=== PATIENT | female | born 1965 | race Caucasian/White ===

== ENCOUNTER 2018-06-08 14:01 | Observation (INO) ==
--- NOTE | 2018-06-08 14:44 | Emergency Department Note ---
Disposition Clinical Impression: Chest pain Qualifiers: Chest pain type: unspecified Qualified Code(s): R07.9 - Chest pain, unspecified Disposition: Admitted As Inpatient Condition: Fair Time of Disposition: 17:38 General Adult HPI - General Chief complaint: ED Shortness of Breath/Dyspnea Stated complaint: KRYSTYNA,Possible pneumonia Time Seen by Provider: 06/08/18 14:17 Source: patient, family Mode of arrival: ambulatory Limitations: no limitations Nursing Notes Reviewed: Yes Vital Signs Reviewed: Yes - History of Present Illness HPI Narrative: 52-year-old female with significant past medical history of COPD not requiring oxygen presenting to the emergency department with chief complaint of acute onset substernal chest pain. Patient states that approximately 11:00 this afternoon she was sitting down when she had crushing substernal chest pain in her left chest. Denies any radiation. Does disclose nausea and mild diaphoresis but denies any vomiting. She states when she started having the pain she took a few full dose aspirin at home. She became concerned when her pain did not resolve and came to the emergency department for further evaluation. She denies any significant cardiac disease but does disclose hypercholesterolemia, hypertension and significant family cardiac disease. She states one year ago her younger sister from an [place]. Patient denies any other anticoagulation use. Pain Scale: 8 - Related Data Home Medications Medication Instructions Recorded Confirmed Albuterol Sulfate [Proair 2 puff IN Q4H PRN 06/12/15 06/08/18 Respiclick] Omeprazole [PriLOSEC] 20 mg PO DAILY 06/12/15 06/08/18 Oxycodone HCl/Acetaminophen 1 each PO Q6H PRN 06/12/15 06/08/18 [Percocet 5-325 mg Tablet] Tiotropium [Spiriva] 18 mcg IH DAILY 06/12/15 06/08/18 Gabapentin [Neurontin] 800 mg PO TID 12/08/16 06/08/18 Levothyroxine Sodium [Levoxyl] 88 mcg PO DAILY 12/08/16 06/08/18 Lisinopril [Zestril] 20 mg PO DAILY 12/08/16 06/08/18 Rosuvastatin [Crestor] 20 mg PO HS 12/08/16 06/08/18 Spironolactone [Aldactone] 25 mg PO DAILY 12/08/16 06/08/18 Previous Rx's Medication Instructions Recorded Ondansetron ODT [Zofran ODT] 4 mg SL Q6HR PRN #10 tab.rapdis 12/20/17 Sucralfate [Carafate] 1 gm PO QIDAC #120 tablet 12/20/17 Allergies Allergy/AdvReac Type Severity Reaction Status Date / Time Penicillins Allergy Difficulty Verified 04/03/18 13:57 Breathing All systems ED: reviewed and negative except as stated. Constitutional: Denies: fever Eyes: Reports: as per HPI ENT ED: Reports: as per HPI Cardiovascular: Reports: chest pain Respiratory: Denies: dyspnea Gastrointestinal: Reports: nausea. Denies: abdominal pain Genitourinary: Reports: as per HPI Musculoskeletal: Reports: as per HPI Integumentary: Reports: as per HPI Neurological: Reports: as per HPI Psychiatric: Reports: as per HPI Endocrine: Reports: as per HPI Hematological/Lymphatic: Reports: as per HPI Allergic/Immunologic: Reports: as per HPI Past Medical History - Past Medical History Attestation: Yes The following information was validated with the patient. 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 Absent: tenderness - Respiratory Respiratory exam: Present: normal lung sounds bilaterally. Absent: respiratory distress, wheezes - Cardiovascular Cardiovascular exam: Present: regular rate, normal rhythm, normal heart sounds - Abdominal Exam Abdominal exam: Present: soft, Non-Tender. Absent: distention, guarding, rebound - Extremities Exam Extremities exam: Present: full ROM - Neurological Exam Neurological exam: Present: alert, oriented X3 - Psychiatric Psychiatric exam: Present: anxious - Skin Skin exam: Present: warm Course Course Narrative: 52-year-old female presenting for chest pain that started at 11:00. Patient still having active chest pain in the room. She is alert and oriented 3 and hemodynamically stable. Patient has no cardiac disease with significant family history. At this time we will perform a chest pain workup including CBC, BMP, troponin, EKG and chest x-ray. We will provide the patient with a nitroglycerin trial. Patient already took full dose aspirin at home. Disposition most likely admission but the pending results. Patient agrees with this plan. - Reevaluation(s) Reevaluation #1: Patient's laboratory analysis within normal limits. EKG within normal limits. Patient pain decreased from 10-7 with 3 nitroglycerin. We will provide the patient with morphine at this time. We will plan to admit the patient for further chest pain rule out. Patient is alert and oriented 3 and hemodynamically stable. Patient agrees with this plan. I spoke with the hospitalist on-call who agrees to accept the patient at this time. Vital Signs Temperature 97.5 F L 06/08/18 14:03 Pulse Rate 92 06/08/18 14:03 Respiratory Rate 20 06/08/18 14:03 Blood Pressure 131/90 06/08/18 14:03 O2 Sat by Pulse Oximetry 100 06/08/18 14:03 Temperature 97.5 F L 06/08/18 14:03 Pulse Rate 72 06/08/18 16:11 Respiratory Rate 17 06/08/18 16:11 Blood Pressure 103/76 06/08/18 16:11 O2 Sat by Pulse Oximetry 99 06/08/18 16:11 Oxygen Delivery Oxygen Delivery Room Air Medical Decision Making - Lab Data Result diagrams: 06/08/18 14:36 06/08/18 14:36 Lab Results 06/08/18 06/08/18 06/08/18 Range/Units 14:36 14:36 14:36 WBC 11.5 H (4.3-11.1) K/mcL RBC 4.37 (3.82-4.97) M/mcL Hgb 14.0 (11.5-15.4) g/dL Hct 41.5 (35.3-44.9) % MCV 95.0 (83.0-100.0) fL MCH 32.0 (28.0-33.3) pg MCHC 33.7 (31.6-35.5) g/dL RDW 12.3 (11.5-14.5) % Plt Count 296 (140-400) K/mcL MPV 10.2 (9.4-12.4) fL Immature Gran % 0.3 (0-4) % Seg Neutrophils % 64.5 % Lymphocytes % 26.0 % Monocytes % 7.0 % Eosinophils % 1.7 % Basophils % 0.5 % Neutrophils # 7.4 (1.6-8.9) K/mcL Lymphocytes # 3.0 (0.6-4.6) K/mcL Monocytes # 0.8 (0.0-1.3) K/mcL Eosinophils # 0.2 (0.0-0.6) K/mcL Basophils # 0.1 (0.0-0.2) K/mcL D-Dimer (0-500) ng/mLFEU Sodium 135 L (136-145) mEq/L Potassium 3.7 (3.5-5.1) mEq/L Chloride 101 (98-107) mEq/L Carbon Dioxide 24 (23-29) mEq/L BUN 11 (6-20) mg/dL Creatinine 0.98 (0.60-1.20) mg/dL Est GFR ( Amer) > 60 (> 60) Est GFR (Non-Af Amer) 59 L (> 60) BUN/Creatinine Ratio 11 (6-26) Glucose 92 (70-105) mg/dL Calculated Osmolality 279 L (280-300) Calcium 10.5 H (8.6-10.3) mg/dL Troponin I < 0.03 (< 0.04) ng/mL B-Natriuretic Peptide 34 (Less than 100) pg/mL 06/08/18 Range/Units 14:36 WBC (4.3-11.1) K/mcL RBC (3.82-4.97) M/mcL Hgb (11.5-15.4) g/dL Hct (35.3-44.9) % MCV (83.0-100.0) fL MCH (28.0-33.3) pg MCHC (31.6-35.5) g/dL RDW (11.5-14.5) % Plt Count (140-400) K/mcL MPV (9.4-12.4) fL Immature Gran % (0-4) % Seg Neutrophils % % Lymphocytes % % Monocytes % % Eosinophils % % Basophils % % Neutrophils # (1.6-8.9) K/mcL Lymphocytes # (0.6-4.6) K/mcL Monocytes # (0.0-1.3) K/mcL Eosinophils # (0.0-0.6) K/mcL Basophils # (0.0-0.2) K/mcL D-Dimer 334 (0-500) ng/mLFEU Sodium (136-145) mEq/L Potassium (3.5-5.1) mEq/L Chloride (98-107) mEq/L Carbon Dioxide (23-29) mEq/L BUN (6-20) mg/dL Creatinine (0.60-1.20) mg/dL Est GFR ( Amer) (> 60) Est GFR (Non-Af Amer) (> 60) BUN/Creatinine Ratio (6-26) Glucose (70-105) mg/dL Calculated Osmolality (280-300) Calcium (8.6-10.3) mg/dL Troponin I (< 0.04) ng/mL B-Natriuretic Peptide (Less than 100) pg/mL - EKG Data EKG #1 EKG attestation: Yes I reviewed and interpreted this EKG. EKG results narrative: Sinus rhythm. 77 bpm. WV interval 123, QRS 83, QTC 457. No sign of acute ST segment elevation or ischemia. Compared to previous EKG completed on 06/24/2016 no significant changes noted Attestation Statement - Attestation Attestation: I, Rocael Obrien, examined this patient and my medical decision-making was reviewed with the SALES OFFICE COORDINATOR/PA/Advanced Practice Nurse/Resident Physician. I agree with the documented findings, disposition and treatment plan as described except to the extent set forth below. 52-year-old female presents emergency Department with concerns of acute onset chest pain. Patient states around 11:00 she developed acute onset of left-sided chest pain which is described as a pressure. Patient reported associated lightheadedness. She states the pain is worse with deep breaths. Unable to reproduce pain on palpation. Initial troponin was negative. EKG did not show evidence of acute STEMI. Patient does have multiple cardiac risk factors however with hypertension, hyperlipidemia, family history of heart disease. D- dimer was negative. Patient be admitted to the hospital for further care and evaluation.
[2018-06-08 15:02] LABS: Basophils # 0.1 K/mcL (0.0-0.2); Basophils % 0.5 %; Eosinophils # 0.2 K/mcL (0.0-0.6); Eosinophils % 1.7 %; Hematocrit 41.5 % (35.3-44.9); Immature Granulocytes % 0.3 % (0-4); Mean Corpuscular HGB Conc 33.7 g/dL (31.6-35.5); Mean Platelet Volume 10.2 fL (9.4-12.4); Monocytes # 0.8 K/mcL (0.0-1.3); Neutrophils # 7.4 K/mcL (1.6-8.9); Platelet Count 296 K/mcL (140-400); Red Blood Count 4.37 M/mcL (3.82-4.97); Red Cell Distribution Width 12.3 % (11.5-14.5); Segmented Neutrophils % 64.5 %
[2018-06-08] MEDS: Nitroglycerin 0.4 MG TAB.SUBL SL PRN ×4 (15:03→23:54)
[2018-06-08 15:22] LABS: BUN/Creatinine Ratio 11 (6-26); Blood Urea Nitrogen 11 mg/dL (6-20); Calcium 10.5 mg/dL (8.6-10.3); Carbon Dioxide 24 mEq/L (23-29); Chloride 101 mEq/L (98-107); Glucose 92 mg/dL (70-105); Osmolality,Calculated 279 (280-300); Potassium 3.7 mEq/L (3.5-5.1); Sodium 135 mEq/L (136-145); Troponin I < 0.03 ng/mL (< 0.04); eGFR For Non-African Americans 59 (> 60)
[2018-06-08] MEDS ORDERED: *HR* Morphine 2 MG/ML SYRINGE IVP ONE (15:47)
[2018-06-08] MEDS ORDERED: Acetaminophen 325 MG TABLET PO ONE (16:49)
[2018-06-08] MEDS ORDERED: Naloxone 0.4 MG/ML INJ IVP PRN (18:26)
[2018-06-08] MEDS ORDERED: Albuterol 2.5 MG/3 ML NEBULIZER IH PRN (18:30)
[2018-06-08] MEDS: *HR* OxyCODONE/APAP 5/325 TABLET PO PRN (19:39)
[2018-06-08] MEDS: Gabapentin 400 MG CAPSULE PO SCH (19:39)
[2018-06-08] MEDS ORDERED: *HR* Promethazine 25 MG/ML VIAL IVP PRN (20:28)
--- NOTE | 2018-06-08 21:40 | Internal Med History&Physical ---
Date of Encounter: 06/08/18 Time of Encounter: 19:00 Internal Medicine - H&P: HPI Chief complaint: CHEST PAIN Admitted From: Home Plans for Post Hospital Care: Home History of present illness: The patient is a 52-year-old woman. She has had underlying COPD and fibromyalgia. She came to the emergency room around 2 PM complaining of precordial chest painCVA in intensity. The pain started around 11 AM; at resting. It did not radiate anywhere. Was associated with mild dyspnea but not diaphoresis or nausea/vomiting. The pain is worse with deep breathing. She has not noticed any exertional chest pain recently. The patient has had more anxiety recently; trying to quit smoking reducing daily number of cigarettes smoked gradually. She started to eat a few weeks ago. She went from one pack a day to about 10 cigarettes per day. Her COPD seems to be stable. She has not experienced any more coughing or wheezing recently. Her fibromyalgia seems to be bothering her last recently. PAST MEDICAL HX: She is treated for COPD, fibromyalgia, hypertension, hyperlipidemia, hypothyroidism and GERD. She has had chronic pain in her left leg due to multiple surgeries on her left knee. She has been taking Percocet for yearsto control the pain. PAST FAMILY HX: Her mother developed a myocardial infarction and her low 40s. See below for other family history. PAST SOCIAL HX: She started smoking cigarettes as a teenager. She used to smoke 1 pack per day; reduced to 10 cigarettes per day in the last 1 month. She denies alcohol and illicit drug use. REVIEW OF SYSTEMS: All 14 organ systems were reviewed by me with the patient. Positive and pertinent negative findings are listed above. The rest of organ systems is negative. PHYSICAL EXAM: Skin: Free of rash and discoloration. Musculoskeletal: There is tenderness at palpation of precordial area. Eyes: Sclera is white. There is no discharge from eyes. ENMT: Oral/pharyngeal mucosa is normal in appearance. There is no discharge from nose or ears. Respiratory: Normal breath sounds with no crackles and wheezes bilaterally. CV: Heart is regular with no gallop or murmur. GI: Abdomen is flat and soft with no palpable mass or visceromegaly. : There is no tenderness in patient's flanks bilaterally. Neuro exam: He has good strength in upper and lower extremities. He has normal eye movements. Psychiatric: He has normal affect. His thought process is appropriate to the situation. ADDITIONAL DATA: EKG shows normal sinus rhythm with no abnormalities. Troponin is normal. CBC shows hemoglobin of 14.0 with WBC of 11.5 thousand and normal platelet count. She has normal electrolytes. Creatinine 0.98. A/P: Chest pain. She has multiple risk factors for early form of coronary artery disease. This is why, I would request pharmacological stress test tomorrow morning. Fibromyalgia. This is probably, why she developed the chest pain. She has also quite a bit of anxiety. Chronic pain in left leg. To continue when necessary Percocet. Her other problems are stable/under control. To continue previously used medications. Past Med Surg Social Fam HX - Past Medical History Medical history: COPD, fibromyalgia, hyperlipidemia, hypertension, osteoporosis, thyroid disease, other Additional medical history: no h & P on chart, states liver disease, anemia, Psychiatric history: anxiety - Past Surgical History Surgical History: cholecystectomy, hysterectomy, knee replacement, orthopedic, other, other Additional surgical history: estephania shoulder scope, left foot, neck sg, bilat knees - Social History Smoking Status: Current every day smoker Smokeless Tobacco Status: No Alcohol use: none Drug use: none - Family History Mother Living Status: Hx Family Cardiac Disorders: Yes ([place]) Hx Family Endocrine Disorder: Yes (DM) Sister Living Status: Hx Family Cardiac Disorders: Yes ([place], factor V leiden) Hx Family Endocrine Disorder: Yes (DM) Father Living Status: Still Living Hx Family Cardiac Disorders: Yes Hx Family Respiratory Disorders: Yes Hx Family Cancer: Yes Hx Family Endocrine Disorder: Yes Internal Medicine - H&P: Meds Albuterol Sulfate [Proair Respiclick] 2 puff IN Q4H PRN 06/12/15 [History] Omeprazole [PriLOSEC] 20 mg PO DAILY 06/12/15 [History] Oxycodone HCl/Acetaminophen [Percocet 5-325 mg Tablet] 1 each PO Q6H PRN 06/12/15 [History] Tiotropium [Spiriva] 18 mcg IH DAILY 06/12/15 [History] Gabapentin [Neurontin] 800 mg PO TID 12/08/16 [History] Levothyroxine Sodium [Levoxyl] 88 mcg PO DAILY 12/08/16 [History] Lisinopril [Zestril] 20 mg PO DAILY 12/08/16 [History] Rosuvastatin [Crestor] 20 mg PO HS 12/08/16 [History] Spironolactone [Aldactone] 25 mg PO DAILY 12/08/16 [History] Ondansetron ODT [Zofran ODT] 4 mg SL Q6HR PRN #10 tab.rapdis 12/20/17 [Rx] Sucralfate [Carafate] 1 gm PO QIDAC #120 tablet 12/20/17 [Rx] Allergy/AdvReac Type Severity Reaction Status Date / Time Penicillins Allergy Difficulty Verified 04/03/18 13:57 Breathing - Constitutional Vitals: Temp Pulse Resp BP Pulse Ox 98.4 F 76 16 112/69 99 06/08/18 19:22 06/08/18 19:22 06/08/18 19:22 06/08/18 19:22 06/08/18 19:22 General appearance: Present: A&O X 3, no acute distress, answers questions appropriately Exam: XX Internal Med - H&P Results - Labs CBC & Chem 7: 06/08/18 14:36 06/08/18 14:36 Labs: Short CBC 06/08/18 Range/Units 14:36 WBC 11.5 H (4.3-11.1) K/mcL Hgb 14.0 (11.5-15.4) g/dL Hct 41.5 (35.3-44.9) % Plt Count 296 (140-400) K/mcL Neutrophils # 7.4 (1.6-8.9) K/mcL BMP 06/08/18 14:36 Sodium 135 L Potassium 3.7 Chloride 101 Carbon Dioxide 24 BUN 11 Creatinine 0.98 Glucose 92 Calcium 10.5 H Cardiac Enzymes 06/08/18 Range/Units 14:36 Troponin I < 0.03 (< 0.04) ng/mL - Impressions ITS Impressions Chest X-Ray 06/08/18 14:18 IMPRESSION: No acute abnormality. D/ / 06/08/2018 15:08:31 Finn Ramirez MD / Annie Romero Interpreting Provider: Finn Ramirez MD - Assessment and plan (1) Chest pain Current Visit: Yes Status: Acute Qualifiers: Chest pain type: precordial pain Qualified Code(s): R07.2 - Precordial pain (2) Fibromyalgia Current Visit: Yes Status: Chronic (3) Anxiety Current Visit: Yes Status: Chronic (4) Left leg pain Current Visit: Yes Status: Chronic - Time Spent With Patient Total time spent is greater than 50% in coordination of care (as documented) at patient's floor/unit and/or counseling patient: 25 - 35 minutes - VTE Reasons for not Prescribing Prophylaxis: Treatment not Indicated - Low risk for VTE Deep Vein Thrombosis/Pulmonary Embolism Present on Admission: No
[2018-06-09] MEDS: *HR* OxyCODONE/APAP 5/325 TABLET PO PRN ×2 (02:43→09:07)
[2018-06-09] MEDS ORDERED: Regadenoson 0.4 MG/5 ML SYRINGE IVP ONE (06:10)
[2018-06-09] MEDS ORDERED: Spironolactone 25 MG TABLET PO SCH (09:00)
[2018-06-09] MEDS ORDERED: Lisinopril 20 MG TABLET PO SCH (09:00)
[2018-06-09] MEDS ORDERED: Tiotropium 18 MCG inhalation IH SCH (09:00)
[2018-06-09] MEDS ORDERED: Aspirin 81 MG TAB.CHEW PO SCH (09:00)
[2018-06-09] MEDS: Gabapentin 400 MG CAPSULE PO SCH (09:08)
[2018-06-09 11:06] VITALS: BP 115/80
--- NOTE | 2018-06-09 12:05 | Discharge Summary ---
<LanceLuis E - Last Filed: 06/09/18 12:03> Orders not resulted at time of discharge: Pending orders 06/08/18 21:48 NM emi perf SPECT multi [NM] Routine 06/09/18 03:30 Factor V Leiden Routine Date of Encounter: 06/09/18 Time of Encounter: 09:20 - Discharge Diagnosis (1) Chest pain Priority: Primary Status: Acute Qualifiers: Chest pain type: precordial pain Qualified Code(s): R07.2 - Precordial pain (2) Anxiety Priority: Secondary Status: Chronic (3) Tobacco abuse Priority: Primary Status: Acute (4) Fibromyalgia Priority: Secondary Status: Chronic (5) COPD (chronic obstructive pulmonary disease) Priority: Secondary Status: Acute Qualifiers: COPD type: unspecified COPD Qualified Code(s): J44.9 - Chronic obstructive pulmonary disease, unspecified (6) Hypothyroidism Priority: Secondary Status: Acute Qualifiers: Hypothyroidism type: unspecified Qualified Code(s): E03.9 - Hypothyroidism, unspecified (7) Hyperlipidemia Priority: Primary Status: Acute Qualifiers: Hyperlipidemia type: unspecified Qualified Code(s): E78.5 - Hyperlipidemia, unspecified (8) GERD (gastroesophageal reflux disease) Priority: Primary Status: Acute Qualifiers: Esophagitis presence: esophagitis presence not specified Qualified Code(s): K21.9 - Gastro-esophageal reflux disease without esophagitis Hospital course: Ms. Montes is a 52 YO F with a PMH of COPD, fibromyalgia, hypertension, hyperlipidemia, hypothyroidism and GERD that came to the emergency room around on 06/08/18 around 2 PM complaining of chest pain. The pain started around 11 AM and came about while resting. She describes the pain as crushing and substernal on her left side. She denied any radiation. She did disclose some nausea and mild diaphoresis but denied any vomiting. She states that when she started having the pain she took the full dose of aspirin subsequently at home. She became concerned when her pain did not resolve and came to the ER for further evaluation. She denies any significant cardiac disease but did disclose a history of hypercholesterolemia, hypertension and significant family cardiac disease. She also stated that one year ago her younger sister from an [place]. Patient also states that she has a family history of factor V Leyden disease. She says that she smokes 1 pack per day on average. She is not on home oxygen. Patient has a heart score of 3. She has multiple risk factors for coronary artery disease including smoking, hyperlipidemia, and hypertension. Her last echo was on 11/11/17 which showed a normal EF of 60% with mild left ventricular diastolic dysfunction and mild tricuspid regurgitation. During her stay here the patient was placed on an aspirin and statin. Her hypertension was controlled with her home medications of lisinopril and spironolactone. Patient was sent in for a nuclear stress test which revealed negative for ischemia or infarct. When seen today patient only admitted some minor chest pain with breaths but denied any chest pain on rest or with exertion. She does admit to some shortness of breath which is not at her baseline particularly with exertion. Denies any nausea or vomiting. Denies any swelling in the lower extremities. Denies any abdominal pain. Patient's vital signs today have been stable and patient has been afebrile with a controlled blood pressure. Patient will be discharged home today with aspirin and nicotine patches. She is already taking a statin along with an KRAIG inhibitor and ARB at home. She will need to follow-up with her PCP within one week. She was counseled on cessation of smoking. She was warned that if she experiences any increased shortness of breath, fever, or chest pain to report immediately back to the ER. - Time Spent with Patient Total time spent providing and/or coordinating discharge services: Less than 30 minutes - Discharge Medications Prescriptions: RX: Aspirin 81 mg PO DAILY 30 Days #30 tab.chew RX: Nicotine Patch [Nicoderm] 14 mg TD DAILY 30 Days #30 patch.[email or web address] Home Medications: RX: Tiotropium [Spiriva] 18 mcg IH DAILY 06/12/15 [History] RX: Gabapentin [Neurontin] 800 mg PO TID 12/08/16 [History] RX: Rosuvastatin [Crestor] 20 mg PO DAILY 12/08/16 [History] Albuterol Sulfate [Proair Hfa] 2 puff IH Q4H PRN 06/09/18 [History] Cyclobenzaprine [Flexeril] 10 mg PO TID PRN 06/09/18 [History] Fenofibrate Nanocrystallized [Fenofibrate] 145 mg PO DAILY 06/09/18 [History] Lisinopril/Hydrochlorothiazide [Zestoretic 20-25 mg Tablet] 1 tab PO DAILY 06/09/18 [History] Readlyn-3/Dha/Epa/Fish Oil [Fish Oil 1,000 mg Softgel] 1 cap PO BID 06/09/18 [History] OxyCODONE/APAP 5/325 [Percocet 5/325 MG] 1 tab PO Q6HR PRN 06/09/18 [History] RX: Aspirin 81 mg PO DAILY 30 Days #30 tab.chew 06/09/18 [Rx] RX: DULoxetine [Cymbalta] 30 mg PO DAILY 06/09/18 [History] RX: Levothyroxine Sodium 100 mcg PO DAILY 06/09/18 [History] RX: Nicotine Patch [Nicoderm] 14 mg TD DAILY 30 Days #30 patch.td24 06/09/18 [Rx ] RX: Omeprazole [PriLOSEC] 40 mg PO BID PRN 06/09/18 [History] Spironolact/Hydrochlorothiazid [Aldactazide 25-25 Tablet] 1 tab PO DAILY 06/09/18 [History] Allergies/Adverse Reactions: Allergy/AdvReac Type Severity Reaction Status Date / Time Penicillins Allergy Difficulty Verified 06/09/18 13:00 Breathing,HIVES Date of admission: 06/08/18 17:01 Primary care physician: Jennifer Thompson Discharging clinician: Luis E Lucas Anticipated date of discharge: 06/09/18 - Constitutional Vitals: Temp Pulse Resp BP Pulse Ox 97.7 F 74 17 115/80 99 06/09/18 11:05 06/09/18 11:05 06/09/18 11:31 06/09/18 11:05 06/09/18 11:31 General appearance: Present: A&O X 3, no acute distress, answers questions appropriately - Respiratory Respiratory exam: Present: chest wall tenderness, wheezes (Minor and expiratory wheezing in the left lung.). Absent: accessory muscle use, rhonchi, stridor, tachypnea - Cardiovascular Cardiovascular exam: Present: RRR, +S1, +S2. Absent: diastolic murmur, gallop, rubs, systolic murmur - GI/Abdominal GI/Abdominal exam: Present: normal bowel sounds, soft, no peritoneal signs. Absent: distended, tenderness - Extremities Exam Extremities exam: Present: warm, radial pulses palpable and symmetrical. Absent: calf tenderness, cyanotic, pedal edema - Skin Skin exam: Present: dry, intact - Patient Status Disposition: Home, Self-Care Condition: Fair Functional capacity at discharge: independent ambulation Overall status at discharge: patient is progressing back to baseline - Discharge Instructions Instructions: Chest Pain (DC) Follow Up With: Jennifer Thompson CNP [Primary Care Provider] - 06/16/18 10:15 am - Diet and Activity Activity: resume usual activities as tolerated Diet: low salt diet - VTE Reasons for not Prescribing Prophylaxis: Treatment not Indicated - Low risk for VTE Deep Vein Thrombosis/Pulmonary Embolism Present on Admission: No <Precious Quach - Last Filed: 06/09/18 13:49> Orders not resulted at time of discharge: Pending orders 06/08/18 21:48 NM emi perf SPECT multi [NM] Routine 06/09/18 03:30 Factor V Leiden Routine Date of Encounter: 06/09/18 Hospital course: Ms. Montes is a 52 year old female - Time Spent with Patient Total time spent providing and/or coordinating discharge services: Date of admission: 06/08/18 17:01 Primary care physician: Jennifer Thompson - Constitutional Vitals: Temp Pulse Resp BP Pulse Ox 97.7 F 74 17 115/80 99 06/09/18 11:05 06/09/18 11:05 06/09/18 11:31 06/09/18 11:05 06/09/18 11:31 - Attending Attestation I examined this patient and my medical decision-making was reviewed with the Resident Physician Dr. Lucas. I agree with the documented findings, disposition and treatment plan as described except to the extent set forth below. Ms. Montes is a 52 y/o F with known PMH of COPD and fibromyalgia pt presented to ER with Chest pain located left chest wall and sub sternal region. Her CP more like sharp pain and non radiating. Patient was admitted in the hospital and placed on manager cardiac. Her serial troponin came back is negative. She did go for nuclear stress test which came back is negative for ischemia. So will discharge her home in a stable condition today. Gen: A, A, O x 3 chest: Diminished BS b.l, no crackles, no rales Heart: S1S2+ RRR
--- NOTE | 2018-06-10 10:14 | Electrocardiograph Report ---
[address] [id number] Test Date: 2018-06-08 Pat Name: Mariam Montes Department: [id number] Room: 3B23 Gender: F Animal Technician: : [id number] Requested By: Carey Acevedo Order Number: [id number] Reading MD: Roro Parker Measurements Intervals [place] Rate: 77 P: 60 ME: 123 QRS: 69 QRSD: 83 T: 43 QT: 403 QTc: 457 Interpretive Statements Sinus rhythm Low voltage, precordial leads Electronically Signed On 06-10-2018 10:13:02 EST by Roro Parker
[2018-06-12 02:15] LABS: FACV Specimen WHOLE BLOOD
[2018-06-12 08:53] LABS: Fac V Leiden R506Q Mut Result HETEROZYGOUS
== END 2018-06-09 13:09 | disposition home or self-care (01) ==
LOC: EMEROOARM 14:01 → 3BNU 14:01
PROVIDERS: ADMIT Student in an Organized Health Care Education/Training Program; ATTEND Student in an Organized Health Care Education/Training Program

== ENCOUNTER 2020-04-03 22:43 | Observation (INO) ==
[2020-04-03 23:14] LABS: Basophils # 0.1 K/mcL (0.0-0.2); Basophils % 0.6 %; Eosinophils # 0.4 K/mcL (0.0-0.6); Eosinophils % 3.3 %; Hematocrit 41.4 % (35.3-44.9); Hemoglobin 13.1 g/dL (11.5-15.4); Immature Granulocytes % 0.2 % (0-4); Lymphocytes % 32.3 %; Mean Corpuscular HGB Conc 31.6 g/dL (31.6-35.5); Mean Corpuscular Hemoglobin 31.2 pg (28.0-33.3); Mean Corpuscular Volume 98.6 fL (83.0-100.0); Mean Platelet Volume 9.5 fL (9.4-12.4); Monocytes # 0.8 K/mcL (0.0-1.3); Monocytes % 6.7 %; Platelet Count 271 K/mcL (140-400); Red Cell Distribution Width 12.7 % (11.5-14.5); Segmented Neutrophils % 56.9 %; White Blood Count 12.3 K/mcL (4.3-11.1)
[2020-04-03 23:39] LABS: Alanine Aminotransferase 8 Units/L (7-52); Albumin 4.5 g/dL (3.5-5.7); Albumin/Globulin Ratio 1.6 (1.1-2.2); Alkaline Phosphatase 65 Units/L (34-104); Aspartate Amino Transferase 11 Units/L (13-39); BUN/Creatinine Ratio 20 (6-26); Bilirubin,Total 0.3 mg/dL (0.3-1.0); Blood Urea Nitrogen 49 mg/dL (6-20); Calcium 9.6 mg/dL (8.6-10.3); Carbon Dioxide 22 mEq/L (23-29); Chloride 108 mEq/L (98-107); Globulin 2.9 g/dL (2.4-3.5); Glucose 83 mg/dL (70-105); Osmolality,Calculated 298 (280-300); Potassium 4.4 mEq/L (3.5-5.1); Sodium 138 mEq/L (136-145); Total Protein 7.4 g/dL (6.4-8.9); Troponin I < 0.03 ng/mL (< 0.04); eGFR For African Americans 25 (> 60); eGFR For Non-African Americans 20 (> 60)
[2020-04-03] MEDS ORDERED: 0.9 % Sodium Chloride 1,000 ML IVC ONE (23:42)
[2020-04-04 00:42] LABS: Bacteria,Urine Few per hpf (None-Few); Bilirubin,Urine Negative (Negative); Blood,Urine Negative (Negative); Clarity,Urine Turbid (Clear); Color,Urine Yellow (Yellow); Glucose,Urine (UA) Normal (Normal); Hyaline Casts,Urine Many per lpf (None Seen); Ketones,Urine Negative (Negative); Leukocyte Esterase,Urine Moderate (Negative); Mucus,Urine Few per lpf (None-Few); Nitrite,Urine Negative (Negative); Protein,Urine 30 mg/dL (Neg-Trace); RBC,Urine 0-3 per hpf (0-3); Specific Gravity,Urine 1.025 (1.010-1.025); Squamous Epithelial Cell,Urine Moderate per hpf (None-Few); Urobilinogen,Urine Normal (Normal)
[2020-04-04 00:45] LABS: Amphetamine Screen,Urine Negative ng/mL (Cutoff=1000); Barbiturate Screen,Urine Negative ng/mL (Cutoff=200); Benzodiazepines Screen,Urine Positive ng/mL (Cutoff=200); Cannabinoid Screen,Urine Positive ng/mL (Cutoff = 50); Cocaine Screen,Urine Negative ng/mL (Cutoff= 300); Opiate Screen,Urine Positive ng/mL (Cutoff=300); Phencyclidine Screen,Urine Negative ng/mL (Cutoff=25)
[2020-04-04 01:05] LABS: Creatine Kinase 136 Units/L (30-223)
[2020-04-04] MEDS ORDERED: 0.9 % Sodium Chloride 1,000 ML IVC ONE (02:16)
[2020-04-04] MEDS ORDERED: 0.9 % Sodium Chloride 1,000 ML ONE (02:19)
[2020-04-04 03:05] LABS: Acetaminophen 10 mcg/mL (10-20); Ethanol < 10 mg/dL (Less than 10); Salicylate < 2.5 mg/dL (15.0-30.0)
[2020-04-04] MEDS ORDERED: Ondansetron 4 MG/2 ML VIAL IVP PRN (04:33)
[2020-04-04] MEDS ORDERED: Naloxone 0.4 MG/ML INJ IVP PRN (04:33)
[2020-04-04] MEDS: Ringers Solution, Lactated 1,000 ML IVC SCH ×2 (05:55→13:05)
[2020-04-04] MEDS ORDERED: Ipratropium/Albuterol Neb 3 ML IH PRN (05:57)
[2020-04-04] MEDS ORDERED: *HR* OxyCODONE/APAP 5/325 TABLET PO ONE (06:08)
[2020-04-04] MEDS ORDERED: Acetaminophen 325 MG TABLET PO PRN (06:43)
[2020-04-04 06:49] LABS: Magnesium 1.6 mg/dL (1.6-2.6); Phosphorous 3.1 mg/dL (2.7-4.5)
[2020-04-04 07:01] LABS: Thyroid Stimulating Hormone 10.39 mcIU/mL (0.340-5.600)
[2020-04-04 07:12] LABS: Folate 7.9 ng/mL (3.0-16.0)
[2020-04-04] MEDS ORDERED: *HR* OxyCODONE/APAP 5/325 TABLET PO PRN ×2 (08:31→15:08)
[2020-04-04] MEDS ORDERED: 0.9 % Sodium Chloride 1,000 ML IVC SCH (10:30)
[2020-04-04] MEDS ORDERED: Cyanocobalamin (B-12) 1,000 MCG TABLET PO SCH (13:00)
[2020-04-04 15:13] VITALS: BP 95/64
[2020-04-04] MEDS ORDERED: ALPRAZolam 0.5 MG TABLET PO SCH (21:00)
[2020-04-05] MEDS ORDERED: Fenofibrate 54 MG TABLET PO SCH (09:00)
[2020-04-05] MEDS ORDERED: Tiotropium 18 MCG inhalation IH SCH (09:00)
== END 2020-04-04 18:22 | disposition left against medical advice (07) ==
LOC: EMEROOARM 22:43 → 3BNU 22:43 → SUATTDRO 04-04 03:43 → 3BNU 04-04 04:20
PROVIDERS: ADMIT Internal Medicine; ATTEND General Practice

== ENCOUNTER 2020-05-29 23:43 | Observation (INO) ==
[2020-05-29] MEDS ORDERED: 0.9 % Sodium Chloride 1,000 ML IVC ONE (23:57)
[2020-05-29] MEDS ORDERED: *HR* FentaNYL (PF) 100 MCG/2 ML VIAL IVP ONE (23:57)
[2020-05-29] MEDS ORDERED: Ondansetron 4 MG/2 ML VIAL IVP ONE (23:57)
[2020-05-30] MEDS: Lidocaine/EPI 1:100k 1% 30 ML VIAL INFILT ONE (00:29)
[2020-05-30 00:36] LABS: Basophils # 0.1 K/mcL (0.0-0.2); Basophils % 0.4 %; Eosinophils # 0.5 K/mcL (0.0-0.6); Eosinophils % 2.7 %; Hematocrit 40.3 % (35.3-44.9); Hemoglobin 13.5 g/dL (11.5-15.4); Immature Granulocytes % 0.3 % (0-4); Lymphocytes # 2.4 K/mcL (0.6-4.6); Lymphocytes % 12.5 %; Mean Corpuscular HGB Conc 33.5 g/dL (31.6-35.5); Mean Corpuscular Volume 95.5 fL (83.0-100.0); Mean Platelet Volume 9.6 fL (9.4-12.4); Monocytes # 1.1 K/mcL (0.0-1.3); Monocytes % 5.6 %; Neutrophils # 14.8 K/mcL (1.6-8.9); Platelet Count 309 K/mcL (140-400); Red Blood Count 4.22 M/mcL (3.82-4.97); Red Cell Distribution Width 12.8 % (11.5-14.5); Segmented Neutrophils % 78.5 %; White Blood Count 18.9 K/mcL (4.3-11.1)
[2020-05-30 00:57] LABS: BUN/Creatinine Ratio 11 (6-26); Blood Urea Nitrogen 39 mg/dL (6-20); Calcium 8.8 mg/dL (8.6-10.3); Carbon Dioxide 23 mEq/L (23-29); Chloride 94 mEq/L (98-107); Glucose 94 mg/dL (70-105); Osmolality,Calculated 281 (280-300); Potassium 4.2 mEq/L (3.5-5.1); Sodium 131 mEq/L (136-145); eGFR For African Americans 15 (> 60); eGFR For Non-African Americans 13 (> 60)
[2020-05-30] MEDS ORDERED: 0.9 % Sodium Chloride 1,000 ML IVC ONE (01:38)
[2020-05-30 03:08] LABS: Bilirubin,Urine Negative (Negative); Blood,Urine Trace (Negative); Clarity,Urine Clear (Clear); Color,Urine Light-Yellow (Yellow); Glucose,Urine (UA) Normal (Normal); Ketones,Urine Negative (Negative); Leukocyte Esterase,Urine Negative (Negative); Nitrite,Urine Negative (Negative); Protein,Urine Negative (Neg-Trace); Specific Gravity,Urine 1.012 (1.010-1.025); Urobilinogen,Urine Normal (Normal)
[2020-05-30 03:20] LABS: Influenza A PCR Negative (Negative); Influenza B PCR Negative (Negative); Resp. Syncytial Virus PCR Negative (Negative)
[2020-05-30 03:23] LABS: Amphetamine Screen,Urine Negative ng/mL (Cutoff=1000); Barbiturate Screen,Urine Negative ng/mL (Cutoff=200); Benzodiazepines Screen,Urine Positive ng/mL (Cutoff=200); Cannabinoid Screen,Urine Positive ng/mL (Cutoff = 50); Cocaine Screen,Urine Negative ng/mL (Cutoff= 300); Opiate Screen,Urine Positive ng/mL (Cutoff=300); Phencyclidine Screen,Urine Negative ng/mL (Cutoff=25)
[2020-05-30 03:23] LABS: SARS-CoV-2 by PCR (In House) Negative (Negative)
[2020-05-30 04:42] LABS: Troponin I < 0.03 ng/mL (< 0.04)
[2020-05-30] MEDS ORDERED: Naloxone 0.4 MG/ML INJ IVP PRN (06:04)
[2020-05-30] MEDS ORDERED: Ondansetron 4 MG/2 ML VIAL IVP PRN (06:04)
[2020-05-30] MEDS ORDERED: *HR* HYDROmorphone (PF) 1 MG/ML SYRINGE IVP PRN (06:07)
[2020-05-30] MEDS ORDERED: Ringers Solution, Lactated 1,000 ML IVC ONE ×3 (06:08→15:00)
[2020-05-30 09:19] LABS: Creatine Kinase 666 Units/L (30-223)
[2020-05-30] MEDS ORDERED: cefTRIAXone 1,000 MG in Water for inj. (sterile) 10 ML IVP SCH (12:00)
[2020-05-30] MEDS: *HR* OxyCODONE/APAP 10/325 TABLET PO PRN ×3 (12:09→22:05)
[2020-05-30 13:20] LABS: Sodium, Urine 100.4 mEq/L
[2020-05-30] MEDS: *HR* Heparin 5,000 UNIT/ML VIAL SQ SCH ×2 (15:03→21:16)
[2020-05-30] MEDS: Gabapentin 100 MG CAPSULE PO SCH ×2 (15:04→21:16)
[2020-05-30] MEDS: ALPRAZolam 0.5 MG TABLET PO SCH (21:16)
[2020-05-31] MEDS: *HR* OxyCODONE/APAP 10/325 TABLET PO PRN ×5 (03:28→21:07)
[2020-05-31] MEDS: *HR* Heparin 5,000 UNIT/ML VIAL SQ SCH ×3 (05:54→21:07)
[2020-05-31] MEDS: Gabapentin 100 MG CAPSULE PO SCH ×3 (08:08→21:06)
[2020-05-31 08:54] LABS: Hematocrit 36.1 % (35.3-44.9); Mean Corpuscular HGB Conc 32.4 g/dL (31.6-35.5); Mean Corpuscular Hemoglobin 31.3 pg (28.0-33.3); Mean Corpuscular Volume 96.5 fL (83.0-100.0); Mean Platelet Volume 9.8 fL (9.4-12.4); Platelet Count 246 K/mcL (140-400); Red Blood Count 3.74 M/mcL (3.82-4.97); Red Cell Distribution Width 13.2 % (11.5-14.5); White Blood Count 9.9 K/mcL (4.3-11.1)
[2020-05-31 08:55] LABS: Hemoglobin 11.7 g/dL (11.5-15.4)
[2020-05-31 09:10] LABS: Magnesium 1.5 mg/dL (1.6-2.6); Phosphorous 1.9 mg/dL (2.7-4.5)
[2020-05-31 11:53] LABS: BUN/Creatinine Ratio 13 (6-26); Blood Urea Nitrogen 15 mg/dL (6-20); Calcium 8.9 mg/dL (8.6-10.3); Carbon Dioxide 21 mEq/L (23-29); Chloride 107 mEq/L (98-107); Glucose 98 mg/dL (70-105); Osmolality,Calculated 279 (280-300); Potassium 4.7 mEq/L (3.5-5.1); Sodium 134 mEq/L (136-145); eGFR For African Americans > 60 (> 60); eGFR For Non-African Americans 50 (> 60)
[2020-05-31] MEDS ORDERED: 0.9 % Sodium Chloride 1,000 ML IVC SCH (13:00)
[2020-05-31] MEDS: Lidocaine/EPI 1:100k 1% 30 ML VIAL INFILT ONE (19:01)
[2020-05-31] MEDS: ALPRAZolam 0.5 MG TABLET PO SCH (21:07)
[2020-06-01] MEDS: *HR* OxyCODONE/APAP 10/325 TABLET PO PRN ×3 (01:35→13:14)
[2020-06-01] MEDS: *HR* Heparin 5,000 UNIT/ML VIAL SQ SCH (05:40)
[2020-06-01 08:44] LABS: BUN/Creatinine Ratio 16 (6-26); Blood Urea Nitrogen 16 mg/dL (6-20); Calcium 9.4 mg/dL (8.6-10.3); Carbon Dioxide 22 mEq/L (23-29); Chloride 106 mEq/L (98-107); Glucose 118 mg/dL (70-105); Osmolality,Calculated 284 (280-300); Potassium 4.2 mEq/L (3.5-5.1); Sodium 136 mEq/L (136-145); eGFR For African Americans > 60 (> 60); eGFR For Non-African Americans 57 (> 60)
[2020-06-01] MEDS: Gabapentin 100 MG CAPSULE PO SCH ×2 (08:49→13:14)
[2020-06-01 11:32] VITALS: BP 116/74
[2020-06-01] MEDS ORDERED: Magnesium Oxide 400 MG TABLET PO SCH (11:45)
== END 2020-06-01 13:48 | disposition home or self-care (01) ==
LOC: CDU 23:43 → EMEROOARM 23:43 → SUATTDRO 05-30 06:01 → CDU 05-30 06:23
PROVIDERS: ADMIT Internal Medicine; ATTEND Internal Medicine

== ENCOUNTER 2021-01-07 22:55 | Observation (INO) ==
[2021-01-08] MEDS ORDERED: *HR* OxyCODONE/APAP 5/325 TABLET PO ONE ×2 (00:22→08:04)
[2021-01-08] MEDS ORDERED: *HR* HYDROmorphone (PF) 1 MG/ML SYRINGE IVP ONE (05:13)
[2021-01-08 06:44] LABS: Basophils # 0.1 K/mcL (0.0-0.2); Basophils % 0.7 %; Eosinophils # 0.4 K/mcL (0.0-0.6); Hematocrit 38.4 % (35.3-44.9); Hemoglobin 12.4 g/dL (11.5-15.4); Immature Granulocytes % 0.4 % (0-4); Lymphocytes # 2.9 K/mcL (0.6-4.6); Lymphocytes % 29.6 %; Mean Corpuscular HGB Conc 32.3 g/dL (31.6-35.5); Mean Platelet Volume 9.3 fL (9.4-12.4); Monocytes # 0.7 K/mcL (0.0-1.3); Monocytes % 6.9 %; Neutrophils # 5.7 K/mcL (1.6-8.9); Platelet Count 295 K/mcL (140-400); Red Blood Count 3.88 M/mcL (3.82-4.97); Red Cell Distribution Width 12.7 % (11.5-14.5); Segmented Neutrophils % 58.4 %; White Blood Count 9.7 K/mcL (4.3-11.1)
[2021-01-08 07:03] LABS: Albumin 4.1 g/dL (3.5-5.7); Albumin/Globulin Ratio 1.3 (1.1-2.2); Bilirubin,Total 0.2 mg/dL (0.3-1.0); Calcium 9.3 mg/dL (8.6-10.3); Globulin 3.1 g/dL (2.4-3.5); Potassium 3.7 mEq/L (3.5-5.1); Total Protein 7.2 g/dL (6.4-8.9)
[2021-01-08] MEDS ORDERED: Naloxone 0.4 MG/ML INJ IVP PRN (08:11)
[2021-01-08] MEDS ORDERED: Ondansetron 4 MG/2 ML VIAL IVP PRN (08:11)
[2021-01-08] MEDS: *HR* OxyCODONE/APAP 7.5/325 TABLET PO PRN ×2 (11:27→17:41)
[2021-01-08] MEDS: Budesonide/Formoterol 80/4.5 1 PUFF INH IH SCH (22:07)
[2021-01-09] MEDS: *HR* OxyCODONE/APAP 7.5/325 TABLET PO PRN ×3 (00:35→12:14)
[2021-01-09] MEDS ORDERED: *HR* Rivaroxaban 10 MG TABLET PO SCH (06:00)
[2021-01-09] MEDS: Budesonide/Formoterol 80/4.5 1 PUFF INH IH SCH (07:52)
[2021-01-09] MEDS ORDERED: hydroCHLOROthiazide 25 MG TABLET PO SCH (09:00)
[2021-01-09] MEDS ORDERED: Spironolactone 25 MG TABLET PO SCH (09:00)
[2021-01-09 10:43] VITALS: PULSE 83; TEMP 98.1; O2SAT 95
[2021-01-09 11:38] VITALS: BP 103/69
== END 2021-01-09 13:03 | disposition home health service (06) ==
LOC: EMEROOARM 22:55 → 3ANU 22:55
PROVIDERS: ADMIT Internal Medicine; ATTEND Internal Medicine

== ENCOUNTER 2021-02-04 23:59 | Observation (INO) ==
[2021-02-05 01:47] LABS: Basophils # 0.1 K/mcL (0.0-0.2); Basophils % 0.5 %; Eosinophils # 0.4 K/mcL (0.0-0.6); Eosinophils % 3.7 %; Hematocrit 34.3 % (35.3-44.9); Hemoglobin 11.2 g/dL (11.5-15.4); Immature Granulocytes % 0.4 % (0-4); Lymphocytes # 2.4 K/mcL (0.6-4.6); Lymphocytes % 24.4 %; Mean Corpuscular HGB Conc 32.7 g/dL (31.6-35.5); Mean Corpuscular Hemoglobin 33.2 pg (28.0-33.3); Mean Corpuscular Volume 101.8 fL (83.0-100.0); Mean Platelet Volume 9.7 fL (9.4-12.4); Monocytes # 0.7 K/mcL (0.0-1.3); Monocytes % 6.7 %; Neutrophils # 6.4 K/mcL (1.6-8.9); Platelet Count 252 K/mcL (140-400); Red Blood Count 3.37 M/mcL (3.82-4.97); Red Cell Distribution Width 12.5 % (11.5-14.5); Segmented Neutrophils % 64.3 %; White Blood Count 9.9 K/mcL (4.3-11.1)
[2021-02-05 02:07] LABS: Calcium 8.9 mg/dL (8.6-10.3); Potassium 4.7 mEq/L (3.5-5.1)
[2021-02-05] MEDS ORDERED: 0.9 % Sodium Chloride 1,000 ML IVC ONE (02:43)
[2021-02-05] MEDS ORDERED: Ketorolac 15 MG/ML VIAL IVP ONE (04:32)
[2021-02-05 04:58] LABS: Bacteria,Urine Few per hpf (None-Few); Bilirubin,Urine Negative (Negative); Blood,Urine Negative (Negative); Calcium Oxalate Crystals,Urine Present per hpf; Clarity,Urine Clear (Clear); Color,Urine Light-Yellow (Yellow); Glucose,Urine (UA) Normal (Normal); Hyaline Casts,Urine Few per lpf (None Seen); Ketones,Urine Negative (Negative); Leukocyte Esterase,Urine Small (Negative); Mucus,Urine Few per lpf (None-Few); Nitrite,Urine Negative (Negative); Protein,Urine Negative (Neg-Trace); RBC,Urine 0-3 per hpf (0-3); Specific Gravity,Urine 1.021 (1.010-1.025); Squamous Epithelial Cell,Urine Few per hpf (None-Few); Urobilinogen,Urine Normal (Normal); WBC,Urine 0-3 per hpf (0-3)
[2021-02-05 05:10] LABS: Amphetamine Screen,Urine Negative ng/mL (Cutoff=1000); Barbiturate Screen,Urine Negative ng/mL (Cutoff=200); Benzodiazepines Screen,Urine Positive ng/mL (Cutoff=200); Cannabinoid Screen,Urine Positive ng/mL (Cutoff = 50); Cocaine Screen,Urine Negative ng/mL (Cutoff= 300); Opiate Screen,Urine Positive ng/mL (Cutoff=300); Phencyclidine Screen,Urine Negative ng/mL (Cutoff=25)
[2021-02-05] MEDS ORDERED: Furosemide 20 MG/2 ML VIAL IVP ONE (06:30)
[2021-02-05] MEDS ORDERED: Ondansetron 4 MG/2 ML VIAL IVP PRN (07:39)
[2021-02-05] MEDS ORDERED: Naloxone 0.4 MG/ML INJ IVP PRN (07:39)
[2021-02-05] MEDS ORDERED: Ringers Solution, Lactated 1,000 ML IVC SCH (07:45)
[2021-02-05] MEDS: Gabapentin 300 MG CAPSULE PO SCH ×3 (10:13→20:25)
[2021-02-05] MEDS: *HR* Heparin 5,000 UNIT/ML VIAL SQ SCH ×2 (12:43→20:25)
[2021-02-05] MEDS: *HR* HYDROcodone/Acet 5/325 mg TABLET PO PRN ×2 (12:43→18:35)
[2021-02-06] MEDS: *HR* HYDROcodone/Acet 5/325 mg TABLET PO PRN ×3 (00:41→14:43)
[2021-02-06] MEDS: *HR* Heparin 5,000 UNIT/ML VIAL SQ SCH ×2 (05:57→14:43)
[2021-02-06 06:28] LABS: BUN/Creatinine Ratio 20 (6-26); Blood Urea Nitrogen 22 mg/dL (6-20); Calcium 9.8 mg/dL (8.6-10.3); Carbon Dioxide 24 mEq/L (23-29); Chloride 110 mEq/L (98-107); Glucose 94 mg/dL (70-105); Magnesium 1.6 mg/dL (1.6-2.6); Osmolality,Calculated 297 (280-300); Phosphorous 3.8 mg/dL (2.7-4.5); Potassium 4.3 mEq/L (3.5-5.1); Sodium 142 mEq/L (136-145); eGFR For African Americans > 60 (> 60); eGFR For Non-African Americans 51 (> 60)
[2021-02-06 06:32] LABS: Basophils # 0.1 K/mcL (0.0-0.2); Basophils % 0.9 %; Eosinophils # 0.4 K/mcL (0.0-0.6); Eosinophils % 7.2 %; Hematocrit 35.9 % (35.3-44.9); Hemoglobin 11.4 g/dL (11.5-15.4); Immature Granulocytes % 0.4 % (0-4); Lymphocytes # 2.4 K/mcL (0.6-4.6); Lymphocytes % 41.5 %; Mean Corpuscular HGB Conc 31.8 g/dL (31.6-35.5); Mean Corpuscular Hemoglobin 31.6 pg (28.0-33.3); Mean Corpuscular Volume 99.4 fL (83.0-100.0); Mean Platelet Volume 9.8 fL (9.4-12.4); Monocytes # 0.5 K/mcL (0.0-1.3); Neutrophils # 2.4 K/mcL (1.6-8.9); Platelet Count 243 K/mcL (140-400); Red Blood Count 3.61 M/mcL (3.82-4.97); Red Cell Distribution Width 12.5 % (11.5-14.5); White Blood Count 5.7 K/mcL (4.3-11.1)
[2021-02-06] MEDS: Gabapentin 300 MG CAPSULE PO SCH ×2 (08:28→14:43)
[2021-02-06] MEDS ORDERED: Aspirin Enteric Coated 81 MG Tablet PO SCH (09:00)
[2021-02-06 14:32] VITALS: BP 113/77; PULSE 96; TEMP 97.8; O2SAT 95
== END 2021-02-06 17:32 | disposition home health service (06) ==
LOC: 3BNU 23:59 → EMEROOARM 23:59 → SUATTDRO 02-05 06:40 → 3BNU 02-05 07:49
PROVIDERS: ADMIT Family Medicine; ATTEND Internal Medicine